=== PATIENT | male | born 1960 | race Caucasian/White ===

== ENCOUNTER 2016-12-21 08:09 | Day surgery (SDC) | payer OTHER ==
[2016-12-21 08:50] VITALS: BMI 28.1
[2016-12-21] MEDS ORDERED: PROPOFOL 20 ML ONE ×2 (09:02)
[2016-12-21 10:25] VITALS: TEMP 97.5
[2016-12-21 14:18] VITALS: BP 105/73; PULSE 64
--- NOTE | 2016-12-27 11:19 | PATH ---
Surgical Pathology Report Patient Name: DONNA HO [facility]. Rec. #: [id number] /Age/Gender: 1960 (Age: 56) / M Account: [id number] Location: U-ENDOSCOPY Taken: 12/21/2016 Received: 12/21/2016 Reported: 12/22/2016 Physicians: Maikel Rdz D.O. Specimen(s) Received A: BX ANTRAL EROSION B: BX ANGULARIS/BODY C: BX GE JUNCTION Clinical History Dyspepsia Gastritis Final Diagnosis A. STOMACH, ANTRAL EROSION, BIOPSY: GASTRIC ANTRAL MUCOSA WITH REACTIVE GASTROPATHY. IMMUNOSTAIN FOR H. PYLORI IS NEGATIVE. B. STOMACH, ANGULARIS AND BODY, BIOPSY: GASTRIC FUNDIC MUCOSA WITH HYPERPLASTIC CHANGES AND FOCAL MILD CHRONIC GASTRITIS. IMMUNOSTAIN FOR H. PYLORI IS NEGATIVE. C. GE JUNCTION, BIOPSY: SQUAMOUS AND GASTRIC MUCOSA WITH CHRONIC INFLAMMATION AND PAPILLOMATOSIS SUGGESTIVE OF REFLUX ESOPHAGITIS. NO INTESTINAL METAPLASIA IDENTIFIED (NO SINGER'S IDENTIFIED). Electronically Signed Ej Brizuela M.D. Gross Description A. Received in formalin, labeled "biopsy antral erosion" are 4 lindsay, irregular portions of soft tissue ranging from 0.1-0.3 cm. in greatest dimension. The specimens are submitted in toto in one cassette. B. Received in formalin, labeled "biopsy angularis/body" are 2 lindsay, irregular portions of soft tissue measuring 0.2 and 0.6 cm. in greatest dimension. The specimens are submitted in toto in one cassette. C. Received in formalin, labeled "biopsy GE junction" are 3 lindsay, irregular portions of soft tissue ranging from 0.2-0.4 cm. in greatest dimension. The specimens are submitted in toto in one cassette. DL/12/21/2016 saudi/12/21/2016
== END 2016-12-21 11:25 | disposition home or self-care (01) ==
LOC: JASU-ENDO 08:09
PROVIDERS: ATTEND Internal Medicine Gastroenterology
PROC: 0DB68ZX Excision of Stomach, Via Natural or Artificial Opening Endoscopic, Diagnostic (ICD-10-PCS; 2016-12-21)
PROC: 0DB48ZX Excision of Esophagogastric Junction, Via Natural or Artificial Opening Endoscopic, Diagnostic (ICD-10-PCS; principal; 2016-12-21 10:00)
DX: K25.9 Gastric ulcer, unspecified as acute or chronic, without hemorrhage or perforation (principal)
CPT/HCPCS: 88305-TC; 88342-TC

== ENCOUNTER 2021-07-20 11:47 | Emergency (ER) | payer OTHER ==
[2021-07-20 12:05] VITALS: BMI 29.2
[2021-07-20] MEDS ORDERED: KETOROLAC TROMETHAMINE 30 MG/1 ML VIAL IM ONE (13:23)
[2021-07-20] MEDS ORDERED: KETOROLAC TROMETHAMINE 30 MG/1 ML VIAL ONE (13:32)
[2021-07-20 14:57] VITALS: BP 128/72; PULSE 88; TEMP 98.4
== END 2021-07-20 14:57 | disposition home or self-care (01) ==
LOC: JER 11:47
PROC: 3E0233Z Introduction of Anti-inflammatory into Muscle, Percutaneous Approach (ICD-10-PCS; principal; 2021-07-20)
DX: U07.1 COVID-19 (principal)
CPT/HCPCS: 87651; 87804; 99284-25; C9803; U0003; U0005